=== PATIENT | female | born 1970 | race Caucasian/White ===

== ENCOUNTER → 2019-08-17 | Day surgery (SDC) | payer OTHER ==
[2019-08-17 13:26] VITALS: RESP 16; BMI 739.9
[2019-08-17 15:24] VITALS: BP 124/85; PULSE 67; TEMP 98.2
--- NOTE | 2019-08-17 16:02 | MM ---
Stereotactic Mammotome core biopsy left breast. HISTORY: 2 sites of microcalcifications labeled A and B. The calcifications in question within the left breast were targeted by the undersigned. Procedure was performed by the undersigned. Informed consent was obtained and all of the patients questions were answered. The standard sterile technique was utilized and appropriate local anesthesia was obtained with 1% lidocaine at each site. 1% lidocaine with epinephrine was also utilized. Mammotome probe was advanced and multiple core samples were obtained from each site and sent to pathology for interpretation. Microclips markers were deployed at the site of biopsy. Post procedural mammogram demonstrates appropriate deployment of radiopaque clip marker. The patient tolerated the procedure well and left the department in stable condition. Pathology results are pending. IMPRESSION: Successful stereotactic core biopsy left breast 2 sites labeled and the with pathology results pending. Site A appears to be dermal in location. Pathology Results: Benign A. LEFT BREAST, SITE A ANTERIOR, NEEDLE CORE BIOPSY: Benign breast parenchyma with fibrocystic spectrum changes and non-atypical lobular adipose tissue suggestive of intramammary lipoma. Intraluminal mineralizations are not identified on multiple recut levels of blocks. B. LEFT BREAST, SITE B POSTERIOR, NEEDLE CORE BIOPSY: Fibrofatty breast parenchyma. Intraluminal mineralizations are not identified on multiple recut levels of blocks. Recommendation Repeat biopsy. Left magnification views recommendation to assess for residual calcifications. MTDD
== END ==
LOC: RADMAMWWP 12:38
PROVIDERS: ATTEND Pediatrics
DX: R92.8 Other abnormal and inconclusive findings on diagnostic imaging of breast (principal)
CPT/HCPCS: 19081; 19082; 88305; A4648; J2001

== ENCOUNTER 2020-02-14 08:05 | Day surgery (SDC) | payer OTHER ==
[2020-02-09 14:19] VITALS: BMI 34.7
[~2020-02-14 08:05] MED LIST: LACTATED RINGERS 1,000 ML IV SCH; LIDOCAINE 1% (10MG/ML) FOR IV START INTRADERMA PRN
[2020-02-14 08:43] VITALS: TEMP 97.9
[2020-02-14] MEDS ORDERED: PROPOFOL 10 MG/ML 20 ML VIAL IV ONE (09:09)
[2020-02-14] MEDS ORDERED: MIDAZOLAM 2 MG/2 ML VIAL ONE (09:09)
[2020-02-14] MEDS ORDERED: fentaNYL (PF) 50 MCG/ML 2 ML AMP ONE (09:09)
[2020-02-14] MEDS ORDERED: LIDOCAINE 1% INJ 10MG/ML (20 ML MDV) ONE (09:09)
--- NOTE | 2020-02-14 09:43 | P.PCN ---
Date of Procedure: 02/14/20 Description of Procedure: BRIEF HISTORY: Patient is a 49-year-old female presenting for outpatient colonoscopy for evaluation of rectal bleeding. Reports prior history of Crohn's disease diagnosed in 2003. She received 2 years of treatment. Since that time she has been off of treatment and doing well however she recently developed complaints of intermittent rectal bleed and abdominal pain. Last colonoscopy 08/21/08 within normal limits with negative biopsies. PROCEDURE PERFORMED: Colonoscopy with biopsy. PREOPERATIVE DIAGNOSIS: Rectal bleed. ESTIMATED BLOOD LOSS: Minimal. IV sedation per Anesthesia. PROCEDURE: After informed consent was obtained, the patient, was brought into the endoscopy unit. IV sedation was administered by Anesthesia under continuous monitoring. Digital rectal examination was normal. Initially the Olympus CF-190 flexible video colonoscope was then inserted in the rectum, gradually advanced into the cecum without any difficulty. Careful examination was performed as the scope was gradually being withdrawn. Ileocecal valve and the appendiceal orifice were visualized and appeared normal. Prep was good. Mucosa of the cecum, ascending colon, transverse colon, descending colon, sigmoid colon, and rectum appeared normal, except for some mild scattered diverticula noted in the sigmoid colon. Random biopsies taken of normal-appearing terminal ileum, as well as the right colon, transverse colon, left colon and rectum. Retroflexion was performed in the rectum and no lesions were seen, with low-grade internal hemorrhoids seen. The patient tolerated the procedure well. IMPRESSION: Normal-appearing colon from rectum to cecum and normal-appearing terminal ileum with random biopsies taken of the rectum, left colon, transverse colon, right colon and terminal ileum. Mild sigmoid diverticulosis. Low-grade internal hemorrhoids. RECOMMENDATIONS: Findings of this examination were discussed with the patient. Okay to resume diet. Okay to resume medications. Await pathology from biopsies. Patient has appointment with GI clinic scheduled next week for results of biopsies.
[2020-02-14 10:11] VITALS: PULSE 66; RESP 20
[2020-02-14 10:12] VITALS: BP 120/82
== END 2020-02-14 10:11 | disposition home or self-care (01) ==
LOC: ORWHC2ENDO 08:05
PROVIDERS: ATTEND Internal Medicine
DX: K57.31 Diverticulosis of large intestine without perforation or abscess with bleeding (principal); K64.8 Other hemorrhoids; K50.90 Crohn's disease, unspecified, without complications; Z87.891 Personal history of nicotine dependence; Z90.49 Acquired absence of other specified parts of digestive tract; Z98.84 Bariatric surgery status; Z90.710 Acquired absence of both cervix and uterus; Z98.890 Other specified postprocedural states
CPT/HCPCS: 81025; 45380; J2250; J2001; J3010; J2704; 88305